=== PATIENT | male | born 1950 | race Two or more races ===

== ENCOUNTER 2017-09-10 14:29 | Inpatient (IN) | payer MEDICARE ==
[~2017-09-10] VITALS: Ht 177.8 cm; Wt 60.8 kg
[2017-09-10] MEDS ORDERED: LISI-607 PO (15:11)
[2017-09-10] MEDS ORDERED: AMLO10TA6 PO (15:11)
[2017-09-10] MEDS ORDERED: LORAZEPAM 0.5 MG TABLET PO PRN (15:30)
[2017-09-10] MEDS ORDERED: MAGNESIUM HYDROXIDE 30 ML UDC PO PRN (15:30)
[2017-09-10 16:00] VITALS: BP 125/82
--- NOTE | 2017-09-10 16:00 | NUR ---
GPS/RN PATIENT ADMITTED ON A 5150 HOLD FOR DTS UNDER THE CARE OF DR SERRA AND DR GALO. PER HOLD PATIENT WAS VOICING SUICIDAL IDEATION AND VERBALIZED THAT HE WAS DEPRESSED AND HAD THOUGHTS OF HANGING HIMSELF. UPON FACE TO FACE ASSESSMENT PATIENT IS ALERT X 3, STABLE CONDITION,. ANXIOUS, ANGRY, VERBALLY ABUSIVE AND STATED " I WANTED TO HANG MYSELF BECAUSE I NEED XANAX" PATIENT PLACED IN ROOM 220 B NEXT TO NURSING STATION AND PATIENT WAS WILLING TO CONTRACT FOR SAFETY, WHICH WAS SIGNED AND PUT IN CHART. BOTH MATTHEW AWARE OF NEW ADMISSION, AND DR GALO AWARE OF NEED TO RECONCILE MEDS IN SYSTEM. BELONGINGS CHECKED IN , SKIN ASSESSMENT DONE AND SKIN INTACT. AT THIS NIKITA PATIENT IS IN ROOM AND IS EASILY AGITATED BUT COOPERATIVE WITH CARE. WILL CONTINUE TO MONITOR Q 15 MIN FOR SAFETY AND BEHAVIOR.
--- NOTE | 2017-09-10 17:19 | NUR ---
GPS/RN PATIENT IS ANXIOUS, AGITATED AND ANGRY, ADMINISTERED ATIVAN 0.5 MG PO , WILL CONTINUE TO MONITOR.
[2017-09-10] MEDS: GABAPENTIN 300 MG CAPSULE PO SCH (18:59)
[2017-09-10] MEDS: LORAZEPAM 1 MG TABLET PO SCH (19:00)
--- NOTE | 2017-09-10 19:05 | NUR ---
RN OPENING NOTE RECEIVED PATIENT IN BED RESTING COMFORTABLY, ALERT ORIENTED X3, IN NO APPARENT DISTRESS OR DISCOMFORT AT THIS TIME, RESPIRATIONS EVEN AND UNLABORED, PATIENT APPEARS SLIGHTLY ANXIOUS BUT IS COOPERATIVE AT THIS TIME. ASKING FOR HIS ATIVAN, WILL ADMINISTER SCHEDULED ATIVAN AND CONTINUE TO MONITOR.
[2017-09-10 19:44] VITALS: BP 131/80
[2017-09-10] MEDS: ACETAMINOPHEN 325 MG TABLET PO PRN (20:24)
[2017-09-10] MEDS: TEMAZEPAM 7.5 MG CAPSULE PO PRN (21:20)
[2017-09-11] MEDS: LORAZEPAM 1 MG TABLET PO SCH ×2 (03:00→17:08)
--- NOTE | 2017-09-11 03:00 | NUR ---
0300 SCHEDULED ATIVAN WAS HELD DUE TO PATIENT BEING ASLEEP AT THIS TIME.
[2017-09-11 07:18] LABS: BASOPHILS # (AUTO) 0.1 /CMM (0.0-0.2); BASOPHILS % (AUTO) 0.9 % (0.0-2.0); HEMATOCRIT 35 % (39-51); HEMOGLOBIN 11.8 g/dL (13.5-17.5); LYMPHOCYTES # (AUTO) 1.8 /CMM (0.8-4.8); LYMPHOCYTES % (AUTO) 27.5 % (20.0-44.0); MEAN CORPUSCULAR HGB CONC 34 g/dl (31.0-36.0); MEAN CORPUSCULAR VOLUME 84 fL (80-96); MONOCYTES # (AUTO) 0.6 /CMM (0.1-1.30); MONOCYTES % (AUTO) 9.9 % (2.0-12.0); NEUTROPHILS # (AUTO) 3.7 /CMM (1.8-8.9); NEUTROPHILS % (AUTO) 56.7 % (43.0-81.0); PLATELET COUNT (AUTO) 221 /CMM (150-450); RDW COEFFICIENT OF VARIATION 18.7 (11.5-15.0); RED BLOOD CELL COUNT(AUTO) 4.14 MIL/uL (4.5-6.0); WHITE BLOOD COUNT (AUTO) 6.5 K/uL (4.3-11.0)
[2017-09-11 07:34] LABS: ALBUMIN 3.2 g/dL (3.4-5.0); BILIRUBIN,TOTAL 0.5 mg/dL (0.2-1.0); CALCIUM, SERUM 8.6 mg/dL (8.5-10.1); CREATININE 0.9 mg/dL (0.6-1.3); POTASSIUM 3.1 mmol/L (3.5-5.1); TOTAL PROTEIN, SERUM 7.2 g/dL (6.4-8.2)
[2017-09-11 08:00] VITALS: BP 123/82
[2017-09-11] MEDS: GABAPENTIN 300 MG CAPSULE PO SCH ×3 (09:11→17:08)
[2017-09-11] MEDS: LORAZEPAM 0.5 MG TABLET PO PRN ×2 (09:12→13:41)
[2017-09-11] MEDS: LISINOPRIL (5MG) 5 MG TABLET PO SCH (09:12)
[2017-09-11] MEDS: AMLODIPINE BESYLATE 10 MG TABLET PO SCH (09:12)
[2017-09-11] MEDS: POTASSIUM CHLORIDE 20 MEQ TAB.PRT.SR PO SCH ×2 (09:43→10:30)
[2017-09-11] MEDS: OLANZAPINE 2.5 MG TABLET PO SCH ×3 (11:59→17:08)
[2017-09-11 16:00] VITALS: BP 104/66
--- NOTE | 2017-09-11 18:34 | NUR ---
RN NOTE: PATIENT WRIST BAND IS NOT SCANNING. ALL DAY, SCANNED ALL MEDS MANUALLY.
[2017-09-12 08:00] VITALS: BP 110/71
[2017-09-12] MEDS: OLANZAPINE 2.5 MG TABLET PO SCH ×3 (08:12→16:47)
[2017-09-12] MEDS: LORAZEPAM 1 MG TABLET PO SCH ×2 (08:12→16:47)
[2017-09-12] MEDS: GABAPENTIN 300 MG CAPSULE PO SCH ×3 (08:12→16:47)
[2017-09-12] MEDS: LISINOPRIL (5MG) 5 MG TABLET PO SCH (08:12)
[2017-09-12] MEDS: AMLODIPINE BESYLATE 10 MG TABLET PO SCH (08:12)
[2017-09-12 16:00] VITALS: BP 112/77
[2017-09-12 20:00] VITALS: BP 102/61
[2017-09-12 20:21] VITALS: BP 102/61
[2017-09-12] MEDS: TEMAZEPAM 7.5 MG CAPSULE PO PRN (21:33)
[2017-09-13] MEDS: LORAZEPAM 0.5 MG TABLET PO PRN ×3 (02:44→19:36)
[2017-09-13 07:22] VITALS: BP 102/61
[2017-09-13] MEDS: OLANZAPINE 2.5 MG TABLET PO SCH ×3 (08:54→21:03)
[2017-09-13] MEDS: GABAPENTIN 300 MG CAPSULE PO SCH ×3 (08:54→16:24)
[2017-09-13] MEDS: LORAZEPAM 1 MG TABLET PO SCH (08:54)
[2017-09-13] MEDS: AMLODIPINE BESYLATE 10 MG TABLET PO SCH (08:54)
[2017-09-13] MEDS: LISINOPRIL (5MG) 5 MG TABLET PO SCH (09:00)
[2017-09-13 09:02] VITALS: BP 111/69
--- NOTE | 2017-09-13 14:53 | NUR ---
Initial Discharge Plan: Pts address on face sheet is [address] [facility] [facility] [address]; [phone]. Pt reports it being a PO BOX. Pt is currently homeless and reports staying in rooms and or renting hotels. Pt would like to discharge to a rehab facility, stating, "I need help." SW will look into facilities and fax inquiry. SW will ensure pt is safely and adequately discharged.
--- NOTE | 2017-09-13 15:27 | NUR ---
DAREN contacted Jayme Dsouza toggle press operator at [facility], [address] [facility] [address]; for discharge planning purposes. DAREN faxed inquiry attention [facility] for review per Mr. Martinez's request. DAREN was informed that inquiry would be reviewed and facility would call back with a response. DAREN will follow up to ensure pt is safely and adequately discharged.
[2017-09-13 16:00] VITALS: BP 115/68
[2017-09-13] MEDS: ACETAMINOPHEN 325 MG TABLET PO PRN (16:24)
[2017-09-13] MEDS: MAG HYDROX/AL HYDROX/SIMETH 30 ML UDC PO PRN (19:36)
[2017-09-13 20:00] VITALS: BP 116/75
[2017-09-13] MEDS: TEMAZEPAM 7.5 MG CAPSULE PO PRN (22:12)
[2017-09-14 08:00] VITALS: BP 106/59
[2017-09-14] MEDS: AMLODIPINE BESYLATE 10 MG TABLET PO SCH (08:35)
[2017-09-14] MEDS: GABAPENTIN 300 MG CAPSULE PO SCH ×3 (08:36→16:17)
[2017-09-14] MEDS: LISINOPRIL (5MG) 5 MG TABLET PO SCH (08:36)
[2017-09-14] MEDS: OLANZAPINE 2.5 MG TABLET PO SCH ×2 (08:37→21:30)
[2017-09-14] MEDS: LORAZEPAM 0.5 MG TABLET PO PRN ×2 (09:56→18:07)
[2017-09-14] MEDS: ACETAMINOPHEN 325 MG TABLET PO PRN (09:56)
[2017-09-14] MEDS: MAG HYDROX/AL HYDROX/SIMETH 30 ML UDC PO PRN (09:59)
--- NOTE | 2017-09-14 15:56 | NUR ---
DAREN receive a call back from Jayme Dsouza pheresis nurse at [facility], [address] [facility] [address]; asking that DAREN follow up with Ave ext [phone] on Sunday morning regarding pts discharge to their treatment center. DAREN will follow up
[2017-09-14 16:00] VITALS: BP 128/76
[2017-09-14 20:00] VITALS: BP 142/69
[2017-09-14] MEDS: TEMAZEPAM 7.5 MG CAPSULE PO PRN (21:30)
[2017-09-15] MEDS: MAG HYDROX/AL HYDROX/SIMETH 30 ML UDC PO PRN ×3 (03:35→20:10)
[2017-09-15] MEDS: LORAZEPAM 0.5 MG TABLET PO PRN ×4 (03:35→20:08)
[2017-09-15] MEDS: LISINOPRIL (5MG) 5 MG TABLET PO SCH (08:31)
[2017-09-15] MEDS: AMLODIPINE BESYLATE 10 MG TABLET PO SCH (08:32)
[2017-09-15] MEDS: GABAPENTIN 300 MG CAPSULE PO SCH ×3 (08:32→16:18)
[2017-09-15] MEDS: OLANZAPINE 2.5 MG TABLET PO SCH ×2 (08:32→21:18)
--- NOTE | 2017-09-15 08:32 | NUR ---
GPS/RN-NOTES PATIENT REQUESTING FOR ATIVAN,FEELING ANXIOUS ATIVAN 1MG P.O GIVEN PRN ORDER. WILL CONT. MONITORING FOR SAFETY AND BEHAVIOR.
[2017-09-15 08:34] VITALS: BP 147/96
--- NOTE | 2017-09-15 14:43 | NUR ---
GPS/RN-NOTES PATIENT REQUESTING FOR ATIVAN,FEELING ANXIOUS ATIVAN 1MG P.O GIVEN PRN ORDER. WILL CONT. MONITORING FOR SAFETY AND BEHAVIOR.
[2017-09-15] MEDS: NICOTINE PATCH (14MG) 14 MG PATCH.TD24 TD SCH (16:38)
[2017-09-15 16:40] VITALS: BP 94/67
[2017-09-15 20:00] VITALS: BP 110/68
--- NOTE | 2017-09-15 20:05 | NUR ---
GPS/LOAN OFFICER; PT ANXIOUS AND REQUESTING FOR ATIVAN; SO ATIVAN 1 MG PO Q4 PRN GIVEN.
[2017-09-15] MEDS: ACETAMINOPHEN 325 MG TABLET PO PRN (20:09)
--- NOTE | 2017-09-15 20:10 | NUR ---
GPS/WALL AND FLOOR TILER; PT. C/O INDIGESTION AND WANTS MED. MAALOX 30 ML PO Q4 PRN GIVEN.
--- NOTE | 2017-09-15 20:10 | NUR ---
GPS/INVASIVE PHYSICIAN; PT C/O PAIN RT HIP AND WANTS MED. TYLENOL 650 MG PO Q6 PRN GIVEN.
--- NOTE | 2017-09-15 22:10 | NUR ---
GPS/SHIRT MAKER; PT REQUESTING FOR SLEEPING PILL. RESTORIL 7.5 MG PO HS PRN GIVEN
[2017-09-15] MEDS: TEMAZEPAM 7.5 MG CAPSULE PO PRN (22:11)
--- NOTE | 2017-09-15 23:00 | NUR ---
GPS/ASSET ANALYST; PT IN BED SLEEPING AT THIS TIME.
--- NOTE | 2017-09-16 02:00 | NUR ---
GPS/MACHINERY MOVER; PT AWAKE AT THIS TIME DURING MY ROUNDS AND WAS SAYING I AM HAVING WITHDRAWAL AND MY HANDS ARE SHAKING. BP 118/71 , P83. ATIVAN 1 MG PO TAB Q4 HOURS PRN GIVEN .
[2017-09-16] MEDS: LORAZEPAM 0.5 MG TABLET PO PRN ×4 (02:04→22:06)
[2017-09-16] MEDS: ACETAMINOPHEN 325 MG TABLET PO PRN ×2 (06:44→19:52)
[2017-09-16 08:39] VITALS: BP 96/68
[2017-09-16] MEDS: AMLODIPINE BESYLATE 10 MG TABLET PO SCH (09:00)
[2017-09-16] MEDS: LISINOPRIL (5MG) 5 MG TABLET PO SCH (09:00)
[2017-09-16] MEDS: GABAPENTIN 300 MG CAPSULE PO SCH ×3 (09:13→16:01)
[2017-09-16] MEDS: NICOTINE PATCH (14MG) 14 MG PATCH.TD24 TD SCH (09:13)
[2017-09-16] MEDS: OLANZAPINE 2.5 MG TABLET PO SCH ×2 (09:18→21:21)
--- NOTE | 2017-09-16 09:27 | NUR ---
RNI-CB-ROYUV: ATIVAN 1 MG PO DUE TO SEVERRE Addendum: 09/16/17 at 1254 by ROCK DURON RN ANXIETY UPON PT REQUEST AND WILL CONTINUE TO MONITOR FOR EFFECTIVENESS OF MEDICATION
--- NOTE | 2017-09-16 14:26 | NUR ---
ASSUMED CARE: RECEIVED PT. AWAKE IN BED, QUIET, NO DISTRESS AND NO AGITATION NOTED. WILL CONTINUE TO MONITOR FOR SAFETY.
[2017-09-16 16:23] VITALS: BP 100/63
[2017-09-16] MEDS: MAG HYDROX/AL HYDROX/SIMETH 30 ML UDC PO PRN (19:52)
[2017-09-16 20:33] VITALS: BP 114/78
[2017-09-16] MEDS: TEMAZEPAM 7.5 MG CAPSULE PO PRN (23:51)
[2017-09-17] MEDS: LISINOPRIL (5MG) 5 MG TABLET PO SCH (08:18)
[2017-09-17] MEDS: NICOTINE PATCH (14MG) 14 MG PATCH.TD24 TD SCH (08:18)
[2017-09-17] MEDS: OLANZAPINE 2.5 MG TABLET PO SCH ×2 (08:19→20:52)
[2017-09-17] MEDS: GABAPENTIN 300 MG CAPSULE PO SCH ×3 (08:19→16:15)
[2017-09-17] MEDS: AMLODIPINE BESYLATE 10 MG TABLET PO SCH (08:19)
[2017-09-17] MEDS: LORAZEPAM 0.5 MG TABLET PO PRN ×3 (08:51→22:19)
--- NOTE | 2017-09-17 08:55 | NUR ---
GPS/RN PATIENT IS ANXIOUS RESTLESS AND AGITATED, ADMINISTERED ATIVAN 1 MG, WILL CONTINUE TO MONITOR Q 15 MIN FOR SAFETY AND BEHAVIOR.
[2017-09-17 09:49] VITALS: BP 126/75
--- NOTE | 2017-09-17 10:55 | NUR ---
DAREN received a call back from Ave from [facility] stating that pt could not be accepted due to "not having anymore psychiatric days, he's used all of them, even his emergency days." DAREN then contacted [facility], [address] [place] [address]. [facility] [address] [facility] [address]; and spoke to Melly for discharge planning purposes. DAREN asked if pt could be assessed for IOP services at the hospital. Daren was informed that an lockstitch collar setter would call back to schedule a date. DAREN will follow up.
[2017-09-17] MEDS: ACETAMINOPHEN 325 MG TABLET PO PRN ×2 (14:06→20:52)
--- NOTE | 2017-09-17 14:07 | NUR ---
GPS/RN PATIENT REPORTS 6/10 GENERALIZED PAIN, ADMINISTERED TYLENOL 650 MG, WILL CONTINUE TO MONITOR.
[2017-09-17 16:00] VITALS: BP 110/74
--- NOTE | 2017-09-17 16:15 | NUR ---
GPS/RN PATIENT IS ANXIOUS RESTLESS AND AGITATED, ADMINISTERED ATIVAN 1 MG, WILL CONTINUE TO MONITOR Q 15 MIN FOR SAFETY AND BEHAVIOR.
--- NOTE | 2017-09-17 19:30 | NUR ---
GPSRN FULLY AWAKE, AMBULATORY. BEHAVIOR ACCEPTABLE. REVIEWED WITH PATIENT TREATMENT PLAN AND MEDICATION REGIMEN. APPEARS TO UNDERSTAND. WANTED TO HAVE ATIVAN TONIGHT. ALL NEEDS ATTENDED.
[2017-09-17 20:02] VITALS: BP 110/63
[2017-09-17] MEDS: MAG HYDROX/AL HYDROX/SIMETH 30 ML UDC PO PRN (20:51)
[2017-09-17] MEDS: TEMAZEPAM 7.5 MG CAPSULE PO PRN (20:52)
--- NOTE | 2017-09-17 22:20 | NUR ---
GPSRN DUE MEDS ADMINISTERED. NO OTHER NEEDS MADE. REMAINS COOPERATIVE AND CALM.
--- NOTE | 2017-09-18 03:19 | NUR ---
GPSTREVOR HAS BEEN SLEEPING SINCE ATIVAN WAS TAKEN. CLOSELY WATCHED.
--- NOTE | 2017-09-18 06:30 | NUR ---
GPSRN FULLY AWAKE, APPEARS TO BE IN GOOD MOOD, STATED SLEPT WELL FROM ATIVAN. NO NEEDS MADE.
[2017-09-18] MEDS: OLANZAPINE 2.5 MG TABLET PO SCH ×2 (08:22→21:06)
[2017-09-18] MEDS: GABAPENTIN 300 MG CAPSULE PO SCH ×3 (08:22→16:33)
[2017-09-18] MEDS: NICOTINE PATCH (14MG) 14 MG PATCH.TD24 TD SCH (08:22)
[2017-09-18] MEDS: LISINOPRIL (5MG) 5 MG TABLET PO SCH (08:23)
[2017-09-18] MEDS: AMLODIPINE BESYLATE 10 MG TABLET PO SCH (08:23)
[2017-09-18] MEDS: ACETAMINOPHEN 325 MG TABLET PO PRN ×2 (08:31→20:50)
[2017-09-18 08:54] VITALS: BP 95/63
[2017-09-18] MEDS: LORAZEPAM 0.5 MG TABLET PO PRN ×2 (10:54→20:27)
[2017-09-18] MEDS: MAG HYDROX/AL HYDROX/SIMETH 30 ML UDC PO PRN (10:55)
--- NOTE | 2017-09-18 10:55 | NUR ---
GPS/RN PATIENT IS ANXIOUS RESTLESS AND AGITATED, ADMINISTERED ATIVAN 1 MG, WILL CONTINUE TO MONITOR Q 15 MIN FOR SAFETY AND BEHAVIOR.
[2017-09-18 16:00] VITALS: BP 100/55
--- NOTE | 2017-09-18 20:28 | NUR ---
GPS RN NOTES: PATIENT IS ANXIOUS AND RESTLESS AND REQUESTED FOR ATIVAN. VSS. ADMINISTERED ATIVAN 1MG PO ORDERED. WILL CONTINUE TO MONITOR.
[2017-09-18 20:40] VITALS: BP 125/75
[2017-09-18 20:48] VITALS: BP 125/75
[2017-09-18] MEDS: TEMAZEPAM 7.5 MG CAPSULE PO PRN (21:56)
[2017-09-19 08:00] VITALS: BP 103/82
[2017-09-19] MEDS: AMLODIPINE BESYLATE 10 MG TABLET PO SCH (09:00)
[2017-09-19] MEDS: NICOTINE PATCH (14MG) 14 MG PATCH.TD24 TD SCH (09:39)
[2017-09-19 09:40] VITALS: BP 103/82
[2017-09-19] MEDS: GABAPENTIN 300 MG CAPSULE PO SCH (09:40)
[2017-09-19] MEDS: LISINOPRIL (5MG) 5 MG TABLET PO SCH (09:40)
[2017-09-19] MEDS: LORAZEPAM 0.5 MG TABLET PO PRN (09:55)
[2017-09-19] MEDS: OLANZAPINE 2.5 MG TABLET PO SCH (09:55)
[2017-09-19] MEDS: ACETAMINOPHEN 325 MG TABLET PO PRN (09:55)
--- NOTE | 2017-09-19 13:57 | NUR ---
DISCHARGE NOTE: PATIENT LEFT THE UNIT AT 1220 WITH CECIL. PATIENT IS MEDICALLY STABLE. ALERT AND ORIENTED X 3. PATIENT DENIES SI/HI DURING DISCHARGE. DENIES VH,AH, AND COMMAND HALLUCINATIONS. LYNN GAVE DISCHARGE ORDER, DISCONTINUE HOLD, AND GAVE PRESCRIPTION. YURI MADE AWARE OF DISCHARGE AND AGREES. BELONGINGS GIVEN. EXIT CARE PAPERS SIGNED AND EXPLAINED TO PATIENT. SKIN ASSESSMENT CLEAR.
--- NOTE | 2017-09-19 15:50 | NUR ---
Discharge Plan: Patient will discharge home, [address] [address] via taxi at 12:00 pm per his request. SW recommended pt be driven via taxi to the [facility]; [address] [place] [address] [facility] [address]; for intake purposes however pt refused. Pt has been notified and is in agreement. Pts brother, Justyn Doshi was also notified via voicemail message. Psychiatrist: [facility]; [address] [place] [address]; . Pts was referred to the following Psychiatric services, [facility]; [address] [place] [address]; and Casting Machine Operator Helper, [facility]; [address] [place] [address]; . Pt was provided with the following referrals: [facility], [facility], [address] [facility] [address]; , [facility]), [facility], [address] [place] [address]; , [facility] ([facility]iction and drug rehab centers), [facility] [address] [place] [address]; [facility] [address] [facility] [address]; , [facility], [facility], [address] [facility]. [address] [place] [address]; and [facility] [address] [facility] [id number] . All above referrals were provided to pt in a copy. Pt accepted referrals and agreed to discharge plan.
== END 2017-09-19 12:20 | disposition home or self-care (01) | DRG 885 ==
LOC: GPS 14:29
PROVIDERS: ADMIT Psychiatry & Neurology Psychosomatic Medicine
DX: F31.9 Bipolar disorder, unspecified (principal); R45.851 Suicidal ideations; F23 Brief psychotic disorder; F41.9 Anxiety disorder, unspecified; I10 Essential (primary) hypertension; F10.10 Alcohol abuse, uncomplicated; F17.200 Nicotine dependence, unspecified, uncomplicated; Z59.0 Homelessness
CPT/HCPCS: 36415; 80053-TC; 80061-TC; 85025-TC; 87081-TC

== ENCOUNTER 2017-11-08 23:55 | Inpatient (IN) | payer MEDICARE ==
[~2017-11-08] VITALS: Ht 177.8 cm; Wt 64.9 kg
[~2017-11-08 23:55] MED LIST: AMLO10TA2 PO; LISI-607 PO
--- NOTE | 2017-11-09 03:01 | NUR ---
GPS RN NOTE: GPS-RN ADMITTED A 67-Y/O MALE, ADMITTED FROM [facility] ER INITIALLY FROM HOME. ARRIVED ON UNIT VIA STRETCHER AND ESCORTED BY TWO EMT AT 0230. PATIENT ADMITTED ON 5150 WITH ORIGINAL HOLD. PER HOLD PATIENT STATED " I WANT TO HANG MYSELF, TRIED CUTTING MY WRIST IN PAST". UPON FACE TO FACE ASSESSMENT, PATIENT APPEARS TO BE ALERT, ORIENTED X3, ANXIOUS AND IRRITABLE. NO ACUTE DISTRESS NOTED. CONTINENT OF BOWEL AND BLADDER. NO C/O PAIN OR DISCOMFORT AT THIS TIME. AMBULATORY WITH A STEADY GAIT. DENIES ANY S/I OR HI AT THIS TIME. BELONGINGS INVENTORIED AND CHECKED FOR CONTRABAND. REVIEWED PATIENT'S RIGHTS. PATIENT IS UNDER THE PSYCHIATRIC CARE OF DR. BAILEY, ORDERS OBTAINED, AND UNDER THE MEDICAL CARE OF DR. JAN AREVALO, NOTIFIED OF ADMISSION AND MED RECON DONE. REFUSED TO SIGN ANY PAPERWORK, SKIN ASSESSMENT, REFUSED MRSA SCREENING PROVIDED SNACKS AND WATER. BED LOCKED AND PLACED IN LOWEST POSITION. ROOM SAFETY CHECKED. FALL PRECAUTIONS MAINTAINED. WILL CONTINUE TO MONITOR Q15MIN ROUNDS FOR SAFETY.
[2017-11-09 03:30] VITALS: BP 118/78
[2017-11-09] MEDS ORDERED: MAGNESIUM HYDROXIDE 30 ML UDC PO PRN (03:30)
--- NOTE | 2017-11-09 03:39 | NUR ---
PATIENT REFUSED VITAL SIGNS UPON ADMISSION STATING WOULD ONLY ALLOW IN MORNING AFTER HE SLEEPS. PATIENT IS CURRENTLY SLEEPING. WILL MONITOR Q 15 FOR SAFETY AND COMFORT.
[2017-11-09] MEDS ORDERED: HYDR-552 PO (04:03)
[2017-11-09] MEDS ORDERED: ONDA4TAB5 PO (04:03)
--- NOTE | 2017-11-09 04:04 | NUR ---
ALLOWED VITALS, WNL, PATIENT BACK TO SLEEP WITHOUT COMPLAINT AT THIS TIME
[2017-11-09] MEDS: ACETAMINOPHEN 325 MG TABLET PO PRN (05:08)
[2017-11-09] MEDS: LORAZEPAM 0.5 MG TABLET PO PRN ×2 (05:08→16:37)
--- NOTE | 2017-11-09 05:41 | NUR ---
PATIENT COMPLAINS OF CONSTIPATION, REMAINS IRRITABLE AND ENDORSE SUICIDAL IDEATION AT THIS TIME. WHEN ASKED TO CONTRACT FOR SAFETY, WOULD NOT ANSWER AND SAID STOP ASKING QUESTIONS.
[2017-11-09 08:00] VITALS: BP 107/70
[2017-11-09] MEDS ORDERED: ONDANSETRON 4 MG TAB.RAPDIS PO PRN (15:00)
[2017-11-09] MEDS: AMLODIPINE BESYLATE 10 MG TABLET PO SCH (15:00)
--- NOTE | 2017-11-09 15:53 | NUR ---
DAREN called the pt's brother, Justyn Doshi ([phone]), to complete parts of the assessment.
--- NOTE | 2017-11-09 15:53 | NUR ---
Initial Discharge Plan: Pt is believed to be homeless but the address on his face sheet states that he resides at [address] [place] [address] ([phone]). Pt is incoherent and not oriented and therefore cannot state where he would like to be transferred, The SW will work with the brother, the pt and the MD regarding appropriate discharge plans. SW will form a safe and proper discharge.
[2017-11-09 16:00] VITALS: BP 107/63
[2017-11-09] MEDS: MAG HYDROX/AL HYDROX/SIMETH 30 ML UDC PO PRN (16:39)
[2017-11-09] MEDS: HYDROCODONE/APAP 5/325MG 1 EACH TABLET PO PRN (18:35)
--- NOTE | 2017-11-09 19:56 | NUR ---
SEEN AND EXAMINED BY DR. LEGGETT, REQUESTING PATIENT TO BE SEEN BY MEDICAL DOCTOR FOR DETOXIFICATION. HAS HX OF CHRONIC ALCOHOLISM.
[2017-11-09 20:00] VITALS: BP 112/66
[2017-11-09] MEDS: MIRTAZAPINE 15 MG TABLET PO SCH (21:57)
[2017-11-09] MEDS: LITHIUM CARBONATE (300 MG CAP) 300 MG CAPSULE PO SCH (22:00)
[2017-11-09] MEDS: TEMAZEPAM 7.5 MG CAPSULE PO PRN (22:17)
--- NOTE | 2017-11-09 22:17 | NUR ---
TEMAZEPAM 7.5 MG CAP 1 PO GIVEN.
[2017-11-10 07:00] LABS: BASOPHILS # (AUTO) 0.1 /CMM (0.0-0.2); BASOPHILS % (AUTO) 1.6 % (0.0-2.0); EOSINOPHILS % (AUTO) 4.6 % (0.0-6.0); HEMATOCRIT 39 % (39-51); HEMOGLOBIN 12.8 g/dL (13.5-17.5); LYMPHOCYTES # (AUTO) 2.3 /CMM (0.8-4.8); LYMPHOCYTES % (AUTO) 27.3 % (20.0-44.0); MEAN CORPUSCULAR HEMOGLOBIN 29 PG (26.0-33.0); MEAN CORPUSCULAR HGB CONC 33 g/dl (31.0-36.0); MEAN CORPUSCULAR VOLUME 90 fL (80-96); MONOCYTES # (AUTO) 0.9 /CMM (0.1-1.30); MONOCYTES % (AUTO) 10.3 % (2.0-12.0); NEUTROPHILS # (AUTO) 4.7 /CMM (1.8-8.9); NEUTROPHILS % (AUTO) 56.2 % (43.0-81.0); PLATELET COUNT (AUTO) 298 /CMM (150-450); RED BLOOD CELL COUNT(AUTO) 4.34 MIL/uL (4.5-6.0); WHITE BLOOD COUNT (AUTO) 8.4 K/uL (4.3-11.0)
[2017-11-10 07:09] LABS: CHOLESTEROL 147 mg/dL (<200); HDL CHOLESTEROL 51 mg/dL (40-60); LDL 84 mg/dL (0-99); TRIGLYCERIDES 110 mg/dL (30-150)
[2017-11-10 07:11] LABS: ALBUMIN 3.8 g/dL (3.4-5.0); BILIRUBIN,TOTAL 0.3 mg/dL (0.2-1.0); CALCIUM, SERUM 9.4 mg/dL (8.5-10.1); CREATININE 1.1 mg/dL (0.6-1.3); POTASSIUM 3.9 mmol/L (3.5-5.1); TOTAL PROTEIN, SERUM 8.4 g/dL (6.4-8.2)
[2017-11-10] MEDS: LORAZEPAM 0.5 MG TABLET PO PRN (07:52)
[2017-11-10 08:00] VITALS: BP 118/65
[2017-11-10] MEDS: LISINOPRIL (5MG) 5 MG TABLET PO SCH (08:06)
[2017-11-10] MEDS: CHLORDIAZEPOXIDE HCL 25 MG CAPSULE PO PRN (08:06)
[2017-11-10] MEDS: LITHIUM CARBONATE (300 MG CAP) 300 MG CAPSULE PO SCH ×3 (08:06→17:05)
[2017-11-10] MEDS: AMLODIPINE BESYLATE 10 MG TABLET PO SCH (08:07)
--- NOTE | 2017-11-10 09:00 | NUR ---
Pt calm resting in his bed, PRN Ativan and Librium with effective results.
[2017-11-10] MEDS: HYDROCODONE/APAP 5/325MG 1 EACH TABLET PO PRN (11:39)
[2017-11-10 16:00] VITALS: BP 98/61
[2017-11-10 20:00] VITALS: BP 104/55
[2017-11-10] MEDS: MIRTAZAPINE 15 MG TABLET PO SCH (21:09)
[2017-11-10] MEDS: TEMAZEPAM 7.5 MG CAPSULE PO PRN (21:09)
--- NOTE | 2017-11-10 21:10 | NUR ---
TEMAZEPAM 7.5 MG CAP 1 PO GIVEN FOR SLEEP.
[2017-11-11 08:00] VITALS: BP 107/68
[2017-11-11] MEDS: CHLORDIAZEPOXIDE HCL 25 MG CAPSULE PO PRN ×2 (09:34→21:37)
[2017-11-11] MEDS: LITHIUM CARBONATE (300 MG CAP) 300 MG CAPSULE PO SCH ×3 (09:34→17:31)
[2017-11-11] MEDS: LISINOPRIL (5MG) 5 MG TABLET PO SCH (09:35)
[2017-11-11] MEDS: AMLODIPINE BESYLATE 10 MG TABLET PO SCH (09:35)
[2017-11-11] MEDS: LORAZEPAM 0.5 MG TABLET PO PRN ×2 (09:36→15:43)
--- NOTE | 2017-11-11 09:48 | NUR ---
RN-CO: Patient is verbally abusive to staff, intrusive and very demanding. Keep on asking for juice and he will throw it. Non redirectable.
--- NOTE | 2017-11-11 14:37 | NUR ---
UNABLE TO MEDICATE PATIENT WAS SLEEPING ATTEMPT TO WAKE HIM BUT UNSUCCESSFUL
[2017-11-11 16:00] VITALS: BP 90/59
[2017-11-11 20:02] VITALS: BP 117/63
--- NOTE | 2017-11-11 21:35 | NUR ---
LIBRIUM 25 MG TAB 1 PO GIVEN.
[2017-11-11] MEDS: MIRTAZAPINE 15 MG TABLET PO SCH (21:37)
[2017-11-11] MEDS: TEMAZEPAM 7.5 MG CAPSULE PO PRN (21:38)
--- NOTE | 2017-11-12 00:48 | NUR ---
11/11 2099, REFUSED SKIN ASSESSMENT TONIGHT. IRRITABLE.
--- NOTE | 2017-11-12 03:16 | NUR ---
TEMAZEPAM 7.5 MG CAP 1 PO GIVEN AT 2138 FOR SLEEP PER PATIENT'S REQUEST.
[2017-11-12 08:00] VITALS: BP 114/61
[2017-11-12] MEDS: AMLODIPINE BESYLATE 10 MG TABLET PO SCH (08:32)
[2017-11-12] MEDS: LISINOPRIL (5MG) 5 MG TABLET PO SCH (08:32)
[2017-11-12] MEDS: LITHIUM CARBONATE (300 MG CAP) 300 MG CAPSULE PO SCH ×3 (08:32→16:34)
[2017-11-12] MEDS: LORAZEPAM 0.5 MG TABLET PO PRN ×2 (08:37→16:07)
[2017-11-12] MEDS: CHLORDIAZEPOXIDE HCL 25 MG CAPSULE PO PRN (12:16)
[2017-11-12] MEDS ORDERED: CHLORDIAZEPOXIDE HCL 25 MG CAPSULE PO PRN (13:00)
[2017-11-12 16:00] VITALS: BP 102/64
[2017-11-12 20:32] VITALS: BP 96/57
[2017-11-12] MEDS: MIRTAZAPINE 15 MG TABLET PO SCH (21:29)
[2017-11-12] MEDS: TEMAZEPAM 7.5 MG CAPSULE PO PRN (23:16)
[2017-11-13 07:30] LABS: ALBUMIN 3.5 g/dL (3.4-5.0); BILIRUBIN,TOTAL 0.2 mg/dL (0.2-1.0); CALCIUM, SERUM 9.4 mg/dL (8.5-10.1); CREATININE 1.2 mg/dL (0.6-1.3); POTASSIUM 4.3 mmol/L (3.5-5.1); TOTAL PROTEIN, SERUM 7.7 g/dL (6.4-8.2)
[2017-11-13 07:31] LABS: BASOPHILS # (AUTO) 0.1 /CMM (0.0-0.2); BASOPHILS % (AUTO) 0.5 % (0.0-2.0); EOSINOPHILS % (AUTO) 4.6 % (0.0-6.0); HEMATOCRIT 36 % (39-51); HEMOGLOBIN 11.8 g/dL (13.5-17.5); LYMPHOCYTES % (AUTO) 18.1 % (20.0-44.0); MEAN CORPUSCULAR HEMOGLOBIN 30 PG (26.0-33.0); MEAN CORPUSCULAR HGB CONC 33 g/dl (31.0-36.0); MEAN CORPUSCULAR VOLUME 90 fL (80-96); MONOCYTES # (AUTO) 1.2 /CMM (0.1-1.30); MONOCYTES % (AUTO) 11.4 % (2.0-12.0); NEUTROPHILS # (AUTO) 7.1 /CMM (1.8-8.9); NEUTROPHILS % (AUTO) 65.4 % (43.0-81.0); PLATELET COUNT (AUTO) 317 /CMM (150-450); RDW COEFFICIENT OF VARIATION 17.4 (11.5-15.0); RED BLOOD CELL COUNT(AUTO) 3.99 MIL/uL (4.5-6.0); WHITE BLOOD COUNT (AUTO) 10.9 K/uL (4.3-11.0)
[2017-11-13 08:00] VITALS: BP 103/56
[2017-11-13] MEDS: LITHIUM CARBONATE (300 MG CAP) 300 MG CAPSULE PO SCH ×3 (08:36→16:56)
[2017-11-13] MEDS: LISINOPRIL (5MG) 5 MG TABLET PO SCH (08:37)
[2017-11-13] MEDS: AMLODIPINE BESYLATE 10 MG TABLET PO SCH (08:37)
--- NOTE | 2017-11-13 12:37 | NUR ---
Dominga ([phone] ext. [phone]) called the SW today and stated that the pt can be connected to resources if the SW gets into contact with Jacy who can be reached at ([phone] ext [phone]).
--- NOTE | 2017-11-13 12:39 | NUR ---
DAREN called Jacy ([phone] ext [phone]) from the [facility] and left a message regarding services for a pt.
--- NOTE | 2017-11-13 12:40 | NUR ---
Jayc ([phone] ext [phone]) from the [facility] called the SW and informed her that this pt is a frequent flyer for resources who often AMAs. Therefore, she stated that there are no resources available at this time but that she would continue to look for one. Until then, she stated that she believes the pt should be discharged to a homeless fpc.
--- NOTE | 2017-11-13 12:41 | NUR ---
Jacy ([phone] ext [phone]) from the [facility] stated that the pt can always go to their building and meet with Jacy personally or go to the 4th floor which is a homeless clinic for services.
[2017-11-13 16:00] VITALS: BP 104/67
--- NOTE | 2017-11-13 19:30 | NUR ---
GPS RN NOTES RECEIVED RESTING COMFORTABLY ON BED,ISOLATE HIMSELF,COVERING HIMSELF WITH BLANKET,BREATHING NORMAL.SITTER AT BEDSIDE FOR SAFETY.WILL CONTINUE TO MONITOR BEHAVIOR.
[2017-11-13 20:16] VITALS: BP 118/61
[2017-11-13 20:48] VITALS: BP 118/61
--- NOTE | 2017-11-13 21:30 | NUR ---
GPS RN NOTES AT THIS TIME NO SITTER,PER NURSING PLUSH WEAVER,ONLY ONE SITTER THEY CAN PROVIDE.FREQUENT ROUNDING INITIATED FOR SAFETY.
[2017-11-13] MEDS: MIRTAZAPINE 15 MG TABLET PO SCH (21:50)
[2017-11-14] MEDS: ACETAMINOPHEN 325 MG TABLET PO PRN (01:07)
[2017-11-14] MEDS: MAG HYDROX/AL HYDROX/SIMETH 30 ML UDC PO PRN ×2 (01:07→20:07)
--- NOTE | 2017-11-14 01:07 | NUR ---
GPS RN NOTES C/O HEADACHE,TYLENOL 650MG PO GIVEN ALONG WITH MAALOX 30ML PO FOR INDIGESTION
[2017-11-14 08:00] VITALS: BP 95/56
[2017-11-14] MEDS: LITHIUM CARBONATE (300 MG CAP) 300 MG CAPSULE PO SCH ×3 (08:10→16:50)
[2017-11-14] MEDS: AMLODIPINE BESYLATE 10 MG TABLET PO SCH (08:11)
[2017-11-14] MEDS: LISINOPRIL (5MG) 5 MG TABLET PO SCH (08:11)
[2017-11-14 16:00] VITALS: BP 93/45
[2017-11-14 16:21] VITALS: BP 93/45
[2017-11-14] MEDS ORDERED: ENSURE ENLIVE 237 ML LIQUID (VANILLA) PO SCH (17:00)
[2017-11-14] MEDS: LORAZEPAM 0.5 MG TABLET PO PRN (19:53)
[2017-11-14 20:13] VITALS: BP 111/82
--- NOTE | 2017-11-14 20:18 | NUR ---
GPS RN NOTE: RECEIVED PATIENT IN BED AWAKE, IRRITABLE AFTER ELECTRONIC DATA INTERCHANGE SPECIALIST WOKE PATIENT TO GET ROUTINE VITALS. ALERT AND ORIENTED X 3, PLEASANT AND COOPERATIVE AFTER ALLOWING PATIENT TO VERBALIZE CONCERNS. STATED FEELING BETTER THAT HE MAY BE LEAVING SUNDAY, DENIES SI AT THIS TIME BUT COMPLAINED OF INCREASING ANXIETY AND INDIGESTION, ATIVAN AND MAALOX PRN GIVEN. PATIENT REEDUCATED ABOUT POTENTIAL FOR FALL RISK AND TO ASK FOR ASSISTANCE WITH AMBULATION, VERBALIZES UNDERSTANDING. BED IN LOW POSITION, SIDE RAILS UP X 2, WILL MONITOR Q 15 FOR SAFETY AND COMFORT.
[2017-11-14] MEDS: MIRTAZAPINE 15 MG TABLET PO SCH (21:16)
[2017-11-15 08:00] VITALS: BP 101/65
[2017-11-15] MEDS: LORAZEPAM 0.5 MG TABLET PO PRN (08:12)
[2017-11-15] MEDS: LITHIUM CARBONATE (300 MG CAP) 300 MG CAPSULE PO SCH ×3 (08:14→16:06)
[2017-11-15] MEDS: LISINOPRIL (5MG) 5 MG TABLET PO SCH (08:14)
[2017-11-15] MEDS: AMLODIPINE BESYLATE 10 MG TABLET PO SCH (08:14)
--- NOTE | 2017-11-15 09:48 | NUR ---
DAREN called the [facility] located at [address] [place] [address] ([phone]) and asked if there was an opening for the pt. DAREN was told to call back the morning of his discharge to secure a bed.
--- NOTE | 2017-11-15 09:49 | NUR ---
DAREN called [facility] located at [address] [facility], [place] [id number] ([phone]) and was told to call back around 1pm.
--- NOTE | 2017-11-15 09:52 | NUR ---
SW called the [facility] located at [address] [place] [address] ([phone]) and they stated that they had beds available and that sending the pt would be fine.
--- NOTE | 2017-11-15 14:48 | NUR ---
DR. BAILEY GAVE AN ORDER TO D/C 1:1.
--- NOTE | 2017-11-15 15:11 | NUR ---
SW called the [facility] ([phone] ext [phone]) and left a message regarding a bed for the pt.
[2017-11-15 16:00] VITALS: BP 112/73
[2017-11-15 20:00] VITALS: BP 104/55
[2017-11-15] MEDS: MIRTAZAPINE 15 MG TABLET PO SCH (21:49)
[2017-11-15] MEDS: TEMAZEPAM 7.5 MG CAPSULE PO PRN (21:49)
[2017-11-16 08:00] VITALS: BP 122/69
--- NOTE | 2017-11-16 08:40 | NUR ---
DAREN called the [facility] ([phone] ext [phone]) and was redirected to Radha at ext [phone] because Jacinto, the person at the ext [phone], went on vacation. DAREN left a message for Radha regarding a bed availability at [facility] for today.
--- NOTE | 2017-11-16 08:42 | NUR ---
DR. BAILEY GAVE AN ORDER TO D/C HOLD AND [facility] AND TO FOLLOW UP WITH PSYCH AND MEDICAL DOCTORS.
[2017-11-16] MEDS: LITHIUM CARBONATE (300 MG CAP) 300 MG CAPSULE PO SCH (08:43)
[2017-11-16] MEDS: LORAZEPAM 0.5 MG TABLET PO PRN (08:43)
[2017-11-16 08:44] VITALS: BP 122/69
[2017-11-16] MEDS: LISINOPRIL (5MG) 5 MG TABLET PO SCH (08:44)
[2017-11-16] MEDS: AMLODIPINE BESYLATE 10 MG TABLET PO SCH (08:44)
--- NOTE | 2017-11-16 09:40 | NUR ---
DAREN called the [facility] in [facility] and spoke to Dominga ([phone] ext [phone]) who redirected her to a Dr. Luigi Alejandro (ext [phone]) to make a follow up appointment. DAREN is now waiting for a call back.
--- NOTE | 2017-11-16 10:47 | NUR ---
Dr. Luigi Alejandro ([phone] ext [phone]) called the and set up an appointment for the pt to be seen by his primary care physician on November 21 at 12:30PM at the [facility] in [facility].
--- NOTE | 2017-11-16 10:49 | NUR ---
DAREN called the [facility] ([phone] ext [phone]) and spoke to Radha who stated that if the pt arrived before 1pm that he will be receiving a bed.
--- NOTE | 2017-11-16 10:49 | NUR ---
DISCHARGE NOTE: PATIENT LEFT THE UNIT AT 1045. PATIENT IS MEDICALLY STABLE. V/S STABLE. DENIES SI/HI DURING DISCHARGE. PSYCHIATRIST GAVE DISCHARGE ORDER, DISCONTINUE HOLD, AND GAVE PRESCRIPTION. FLAT POLISHER MADE AWARE OF DISCHARGE AND AGREES. PATIENT SIGNED EXIT CARE PAPERS. BELONGINGS WITH PATIENT DURING DISCHARGE. EXIT CARE PAPERS EXPLAINED TO PATIENT DURING DISCHARGE. SKIN ASSESSMENT REFUSED BY PATIENT.
--- NOTE | 2017-11-16 11:11 | NUR ---
Pt was discharged to a homeless half-way called [facility] located at [address] [place] [address]; . Pt will be transported via bus and was given the appropriate amount of money for this trip which came out to $6.00 in [place]. Pt was provided with referrals to other homeless shelters, food chavez, substance use referrals and was also provided with information about his upcoming report. SW spoke to Dr. Luigi Alejandro ([phone] ext [phone]) from the [facility] in [facility] and and set up an appointment for the pt to be seen by his primary care physician (Dr. Dockery) on November 21 at 12:30PM. Upon discharge, pt appeared to be in an euthymic mood with an anxious affect. Pt denied having any hallucinations and also denied both suicidal and homicidal ideation. Pt was referred to be under the care of psychiatrist, Dr. Issa Pay[place], [place] [address] [place], [place]; for the present time until his primary physician sets up a psychiatrist from the [facility] in [facility] for him. Pt will also be under the care of his quality assurance manager, Dr. Dockery, located at [address] [place] [address]; . Substance Use Referrals: [facility] [address] [facility] [place] [address] Tel. [facility] Primary Care [facility] [address] [place] Provider Mental Health Treatment Tele-dermatology HIV Services Telemedicine Services [facility] [address] [place] [address] [facility] [address] [place] [address] Homeless Shelters: [facility] and [facility] [address] [place] [address] [facility] [address] [place], [place] [id number] Food Resources: [facility] [address] [place] [address] [facility] [address] [place] [address]
== END 2017-11-16 10:45 | disposition home or self-care (01) | DRG 885 ==
LOC: GPS 11-09 02:21
PROVIDERS: ADMIT Psychiatry & Neurology Psychosomatic Medicine; ATTEND Psychiatry & Neurology Psychosomatic Medicine
DX: F25.0 Schizoaffective disorder, bipolar type (principal); R45.851 Suicidal ideations; F29 Unspecified psychosis not due to a substance or known physiological condition; F41.9 Anxiety disorder, unspecified; F12.11 Cannabis abuse, in remission; F10.11 Alcohol abuse, in remission; Y90.9 Presence of alcohol in blood, level not specified; D64.9 Anemia, unspecified; F10.10 Alcohol abuse, uncomplicated; F17.200 Nicotine dependence, unspecified, uncomplicated; I10 Essential (primary) hypertension; F19.10 Other psychoactive substance abuse, uncomplicated
CPT/HCPCS: 36415; 80053-TC; 80061-TC; 85025-TC; 87081-TC

== ENCOUNTER 2021-06-22 16:03 | Emergency (ER) | payer OTHER ==
[~2021-06-22] VITALS: Ht 177.8 cm; Wt 81.6 kg
[~2021-06-22 16:03] MED LIST changes: +AMLO-213 PO; -AMLO10TA2 PO; +HYDR-4384 PO; -LISI-607 PO; +LISI-768 PO; +ONDA4TAB5 PO
--- NOTE | 2021-06-22 16:13 | NUR ---
TO ER BED 13, BIBRA78 FRM A BUS STOP, TRIP AND FELL WHILE WALKING W/ WALKER. APPEARS INTOXICATED, BG 90 GARMENT WORKER, NOTED KNEE ABRASIONS, AAOX3, BREATHING EVEN AND NON LABORED, AWAITING MD SHRESTHA
[2021-06-22] MEDS ORDERED: IV NS 0.9% 1,000 ML BAG IV ONE (16:30)
[2021-06-22] MEDS ORDERED: ONDANSETRON HCL/PF 4 MG/2 ML VIAL IVP ONE (16:30)
[2021-06-22] MEDS ORDERED: ONDANSETRON HCL/PF 4 MG/2 ML VIAL ONE (16:38)
--- NOTE | 2021-06-22 16:47 | NUR ---
PT REFUSED NORMAL SALINE AND ZOFRAN, STATED "I DONT WANT TO BE POKED"
[2021-06-22] MEDS ORDERED: ONDANSETRON 4 MG TAB.RAPDIS ONE (16:55)
[2021-06-22] MEDS ORDERED: ONDANSETRON 4 MG TAB.RAPDIS SL ONE (17:00)
--- NOTE | 2021-06-22 17:27 | NUR ---
COVID SWAB DONE AND SENT TO LAB
--- NOTE | 2021-06-22 18:10 | NUR ---
MOVE SHEET SUBMITTED
--- NOTE | 2021-06-22 18:18 | NUR ---
MIDLINE NURSE AT BEDSIDE
[2021-06-22] MEDS ORDERED: IBUP-1953 PO (18:19)
[2021-06-22] MEDS ORDERED: PAIN MED (18:19)
[2021-06-22] MEDS ORDERED: OMEP20CA15 PO (18:19)
[2021-06-22 19:58] LABS: BASOPHILS # (AUTO) 0.1 K/uL (0.0-0.2); BASOPHILS % (AUTO) 0.9 % (0.0-2.0); EOSINOPHILS % (AUTO) 4.3 % (0.0-6.0); HEMATOCRIT 33 % (39-51); HEMOGLOBIN 10.9 g/dL (13.5-17.5); LYMPHOCYTES # (AUTO) 2.9 K/uL (0.8-4.8); LYMPHOCYTES % (AUTO) 33.3 % (20.0-44.0); MEAN CORPUSCULAR HGB CONC 33 g/dl (31.0-36.0); MEAN CORPUSCULAR VOLUME 85 fL (80-96); MONOCYTES # (AUTO) 0.6 K/uL (0.1-1.30); MONOCYTES % (AUTO) 6.5 % (2.0-12.0); NEUTROPHILS # (AUTO) 4.9 K/uL (1.8-8.9); PLATELET COUNT (AUTO) 151 K/uL (150-450); RED BLOOD CELL COUNT(AUTO) 3.87 MIL/uL (4.5-6.0); WHITE BLOOD COUNT (AUTO) 8.9 K/uL (4.3-11.0)
[2021-06-22 21:13] LABS: ALBUMIN 3.3 g/dL (3.4-5.0); BILIRUBIN,DIRECT 0.1 mg/dL (0.0-0.2); BILIRUBIN,TOTAL 0.1 mg/dL (0.2-1.0); CALCIUM, SERUM 9.5 mg/dL (8.5-10.1); CREATININE 0.9 mg/dL (0.6-1.3)
[2021-06-22] MEDS ORDERED: CHLORDIAZEPOXIDE HCL 25 MG CAPSULE ONE ×2 (21:58→22:00)
[2021-06-22] MEDS ORDERED: POTASSIUM CHLORIDE 20 MEQ TAB.PRT.SR PO ONE ×2 (21:59→22:00)
[2021-06-22] MEDS ORDERED: CHLORDIAZEPOXIDE HCL 25 MG CAPSULE PO ONE (22:00)
[2021-06-22 23:14] VITALS: BP 126/90
--- NOTE | 2021-06-22 23:14 | NUR ---
Patient discharged to home in stable condition. Written and verbal after care instructions given. Patient verbalizes understanding of instruction.
== END 2021-06-22 23:14 | disposition home or self-care (01) ==
LOC: ER 16:52
DX: S93.402A Sprain of unspecified ligament of left ankle, initial encounter (principal); S80.212A Abrasion, left knee, initial encounter; V78.4XXA Person boarding or alighting from bus injured in noncollision transport accident, initial encounter; Y92.89 Other specified places as the place of occurrence of the external cause; Y99.8 Other external cause status; Z59.00 Homelessness unspecified; F10.129 Alcohol abuse with intoxication, unspecified; Y90.2 Blood alcohol level of 40-59 mg/100 ml; E87.6 Hypokalemia; D64.9 Anemia, unspecified; R26.2 Difficulty in walking, not elsewhere classified; F32.A Depression, unspecified; Z20.822 Contact with and (suspected) exposure to COVID-19
CPT/HCPCS: 36410; 36415; 73610; 73630; 80048; 80076; 80320; 83690; 85025; 87426; 99284; C9803; Q0162; G0480; J2405; J7030

== ENCOUNTER 2021-06-23 02:03 | Emergency (ER) | payer OTHER ==
[~2021-06-23] VITALS: Ht 170.2 cm; Wt 65.8 kg
--- NOTE | 2021-06-23 02:30 | NUR ---
BIBRA89 FROM THE STREETS FOR ETOH WITH +S/I.. PATIENT ALERT AND ORIENTED X2. AMBULATORY WITH WALKER PLACED IN BED 14 IN GOWN ON MONITOR AND POX.
--- NOTE | 2021-06-23 02:36 | NUR ---
URINE COLLECTED AND SENT TO LAB
[2021-06-23 03:03] LABS: BILIRUBIN,URINE NEGATIVE (NEGATIVE); COLOR,URINE YELLOW (YELLOW); LEUKOCYTE ESTERASE ,URINE NEGATIVE (NEGATIVE); NITRITE, URINE NEGATIVE (NEGATIVE); PROTEIN,URINE NEGATIVE (NEGATIVE); UGLUCOSE NEGATIVE (NEGATIVE); UROBILINOGEN,URINE 0.2 EU/dL (0.2)
[2021-06-23 03:05] LABS: BASOPHILS % (AUTO) 1.2 % (0.0-2.0); EOSINOPHILS % (AUTO) 4.7 % (0.0-6.0); HEMATOCRIT 37 % (39-51); HEMOGLOBIN 11.8 g/dL (13.5-17.5); LYMPHOCYTES % (AUTO) 26.1 % (20.0-44.0); MEAN CORPUSCULAR HGB CONC 32 g/dl (31.0-36.0); MEAN CORPUSCULAR VOLUME 86 fL (80-96); MONOCYTES % (AUTO) 8.9 % (2.0-12.0); NEUTROPHILS % (AUTO) 59.1 % (43.0-81.0); PLATELET COUNT (AUTO) 288 K/uL (150-450); RED BLOOD CELL COUNT(AUTO) 4.29 MIL/uL (4.5-6.0); WHITE BLOOD COUNT (AUTO) 10.9 K/uL (4.3-11.0)
[2021-06-23 03:06] LABS: BASOPHILS # (AUTO) 0.1 K/uL (0.0-0.2); LYMPHOCYTES # (AUTO) 2.8 K/uL (0.8-4.8); NEUTROPHILS # (AUTO) 6.5 K/uL (1.8-8.9)
[2021-06-23 03:16] LABS: CREATININE 0.9 mg/dL (0.6-1.3); POTASSIUM 3.5 mmol/L (3.5-5.1)
[2021-06-23 03:20] LABS: ALBUMIN 3.4 g/dL (3.4-5.0); BILIRUBIN,DIRECT 0.1 mg/dL (0.0-0.2); BILIRUBIN,TOTAL 0.1 mg/dL (0.2-1.0); TOTAL PROTEIN, SERUM 8.1 g/dL (6.4-8.2)
--- NOTE | 2021-06-23 08:34 | NUR ---
ALEXIS HERNANDEZ CALLED FOR EVAL
--- NOTE | 2021-06-23 10:25 | NUR ---
PT IS NOT LONGER IN HIS BED, HE ELOPED. LAST SEEN AT 1010. MADE AWARE.
[2021-06-23 10:30] VITALS: BP 126/62
== END 2021-06-23 10:30 | disposition left against medical advice (07) ==
LOC: ER 02:06
DX: R45.851 Suicidal ideations (principal); F10.129 Alcohol abuse with intoxication, unspecified; F19.10 Other psychoactive substance abuse, uncomplicated; I10 Essential (primary) hypertension; Z79.899 Other long term (current) drug therapy; Y90.6 Blood alcohol level of 120-199 mg/100 ml
CPT/HCPCS: 36415; 80048-TC; 80076-TC; 85025-TC; G0480

== ENCOUNTER 2021-06-23 11:58 | Emergency (ER) | payer OTHER ==
[~2021-06-23] VITALS: Ht 170.2 cm; Wt 67.1 kg
[2021-06-23 12:00] VITALS: BP 125/75
--- NOTE | 2021-06-23 12:13 | NUR ---
BIB RA 102 FROM [facility] FOR ETOH USE. AAOX4, BREATHING EVEN AND UNLABORED. PT WALKS IN STABLE GAIT. WILL CONTINUE TO MONITOR.
--- NOTE | 2021-06-23 14:09 | NUR ---
Patient eloped from facility. ER MD notified.
== END 2021-06-23 14:09 | disposition left against medical advice (07) ==
LOC: ER 12:02
DX: F10.129 Alcohol abuse with intoxication, unspecified (principal); Y90.9 Presence of alcohol in blood, level not specified

== ENCOUNTER → 2021-06-23 | Emergency (ER) | payer OTHER ==
[~2021-06-23] VITALS: Ht 170.2 cm; Wt 66.2 kg
[~2021-06-23] MED LIST changes: -HYDR-4384 PO; +IBUP-1953 PO; -LISI-768 PO; +OMEP20CA15 PO; -ONDA4TAB5 PO; +PAIN MED
--- NOTE | 2021-06-23 15:57 | NUR ---
BIB RA88 WAS SLEEPING IN A SIDEWALK W/ HALF BOTTLE OF VODKA. PT ELOPED FROM ED EARLIER TODAY. AWAKE, CONFUSED. AMBULATORY. TO ER BED 15.
--- NOTE | 2021-06-23 18:32 | NUR ---
PT IN ER BED 6, BLANKETS GIVEN.
--- NOTE | 2021-06-23 19:03 | NUR ---
AWAKE AND ALERT, VS STABLE.
--- NOTE | 2021-06-23 20:26 | NUR ---
PT GIVEN 3 GLASSES OF WATER. TOLERATED WELL. NEEDS MET.
--- NOTE | 2021-06-23 21:57 | NUR ---
PT GIVEN 2 MORE GLASSES OF WATER. TOLERATED WELL
--- NOTE | 2021-06-24 00:09 | NUR ---
PROVIDED PT WITH WATER, PT USED URINAL AT BEDSIDE
--- NOTE | 2021-06-24 02:07 | NUR ---
PT AWAKE, OFFERED WATER PT INTAKE- 2 CUPS. TOLERATED WELL.
--- NOTE | 2021-06-24 02:31 | NUR ---
PT CURRRENTLY ASLEEP, V/S STABLE
--- NOTE | 2021-06-24 03:01 | NUR ---
PROVIDED WATER TO PATIENT. REMOVED RESTARAINTS. PT AWAKE.
--- NOTE | 2021-06-24 05:52 | NUR ---
pt a/o x 3 awake, pt discharged water and food provided left in stable condition.
[2021-06-24 05:54] VITALS: BP 148/89
== END | disposition home or self-care (01) ==
LOC: ER 15:21
DX: F10.129 Alcohol abuse with intoxication, unspecified (principal); I10 Essential (primary) hypertension; Z60.2 Problems related to living alone; Z79.899 Other long term (current) drug therapy; Y90.9 Presence of alcohol in blood, level not specified

== ENCOUNTER 2021-06-24 08:31 | Emergency (ER) | payer OTHER ==
[~2021-06-24] VITALS: Ht 170.2 cm; Wt 66.2 kg
[2021-06-24 08:32] VITALS: BP 165/78
--- NOTE | 2021-06-24 08:32 | NUR ---
SELF PRESENTS TO ED REQUESTING BUS PASS TO GO TO [facility] DENIES SOB.
--- NOTE | 2021-06-24 08:49 | NUR ---
PROVIDED WAS PROVIDED WITH WATER, GATORADE, BUS PASS, AND [facility]. PT WAS DISCHARGED BY DR DEGROOT, NO PAPERS WERE SIGNED.
== END 2021-06-24 08:49 | disposition home or self-care (01) ==
LOC: ER 08:32
DX: F10.129 Alcohol abuse with intoxication, unspecified (principal); I10 Essential (primary) hypertension; Z60.2 Problems related to living alone; Z79.1 Long term (current) use of non-steroidal anti-inflammatories (NSAID); Z79.891 Long term (current) use of opiate analgesic; Z79.899 Other long term (current) drug therapy; Y90.9 Presence of alcohol in blood, level not specified